=== PATIENT | male | born 1990 | race Caucasian/White ===

== ENCOUNTER 2017-05-30 04:16 | Emergency (ER) | payer OTHER ==
[~2017-05-30] VITALS: Ht 170.2 cm; Wt 89.0 kg
[2017-05-30 04:21] VITALS: BP 153/68
--- NOTE | 2017-05-30 04:25 | NUR ---
27 Y/O M W/C/O L GREAT TOE PAIN/LAC S/P STAGE DECK FELL ON TOP OF AFFECTED TOE. NO MED, BLEEDING UNDER CONTROL. ER MADE AWARE.
--- NOTE | 2017-05-30 04:40 | NUR ---
Pt report given to GLENNY COLE. Transfer of care at this time.
[2017-05-30] MEDS ORDERED: IBUPROFEN 800 MG TAB PO ONE (05:00)
[2017-05-30] MEDS ORDERED: LIDOCAINE 1% ***ER ONLY *** 50 ML ONE (05:13)
[2017-05-30] MEDS ORDERED: SILVER NITRATE APPLICATOR 1 EA SWAB TP ONE ×2 (05:37→05:38)
[2017-05-30] MEDS ORDERED: BACITRACIN OINT 500 UNITS/GM PKT TP ONE (06:17)
[2017-05-30 06:33] VITALS: BP 140/82
--- NOTE | 2017-05-30 06:34 | NUR ---
Patient discharged with v/s stable. Written and verbal after care instructions given and explained. Patient alert, oriented and verbalized understanding of instructions. Ambulatory with steady gait. All questions addressed prior to discharge. ID band removed. Patient advised to follow up with PMD. Rx of NAPROXEN 500MG, NORCO 5MG given. Patient educated on indication of medication including possible reaction and side effects. Opportunity to ask questions provided and answered.
== END 2017-05-30 06:34 | disposition home or self-care (01) ==
LOC: MED 04:16
DX: S91.211A Laceration without foreign body of right great toe with damage to nail, initial encounter (principal); W20.8XXA Other cause of strike by thrown, projected or falling object, initial encounter; Y93.89 Activity, other specified; Y92.89 Other specified places as the place of occurrence of the external cause; Y99.8 Other external cause status
CPT/HCPCS: 11760; 73630; 90471; 90715; 99284; J2001; Q0092

== ENCOUNTER 2018-04-12 21:02 | Emergency (ER) | payer OTHER ==
[~2018-04-12] VITALS: Ht 172.7 cm; Wt 69.4 kg
[2018-04-12 21:03] VITALS: BP 130/84
[2018-04-12 22:37] VITALS: BP 132/82
== END 2018-04-12 22:30 | disposition home or self-care (01) ==
LOC: MED 21:02
DX: S43.004A Unspecified dislocation of right shoulder joint, initial encounter (principal); X58.XXXA Exposure to other specified factors, initial encounter; Y93.89 Activity, other specified; Y92.89 Other specified places as the place of occurrence of the external cause; Y99.8 Other external cause status
CPT/HCPCS: 73030; 99284

== ENCOUNTER 2021-09-26 21:39 | Emergency (ER) | payer OTHER ==
[~2021-09-26] VITALS: Ht 172.7 cm; Wt 63.5 kg
[2021-09-26 21:47] VITALS: BP 135/83
--- NOTE | 2021-09-26 23:34 | NUR ---
PT FELL ON BACK ON A RAIL WHILE SKATING APPROX 3 HOURS AGO, PT STATES HE FEELS PAIN WHEN COUGHING AND DURING MOVEMENT ON HIS RIGHT RIBCAGE 02/17, " I HEAR POPING SOUNDS WHEN I MOVE". 106 P 99% 14R 131/91 BP PMH: NONE MEDS: NONE NKDA
[2021-09-26] MEDS ORDERED: KETOROLAC 60 MG/2 ML VIAL IM ONE (23:45)
[2021-09-27] MEDS ORDERED: ACET-8386 PO (00:16)
[2021-09-27] MEDS ORDERED: IBUP-2213 PO (00:16)
[2021-09-27 00:30] VITALS: BP 131/91
--- NOTE | 2021-09-27 00:36 | NUR ---
Patient discharged with v/s stable. Written and verbal after care instructions given and explained. Patient alert, oriented and verbalized understanding of instructions. Ambulatory with steady gait. All questions addressed prior to discharge. ID band removed. Patient advised to follow up with PMD. Rx of NORCO 5/325 & IBUPROFEN given. Patient educated on indication of medication including possible reaction and side effects. Opportunity to ask questions provided and answered.
== END 2021-09-27 00:36 | disposition home or self-care (01) ==
LOC: MED 21:39
DX: S22.31XA Fracture of one rib, right side, initial encounter for closed fracture (principal); M54.9 Dorsalgia, unspecified; F17.210 Nicotine dependence, cigarettes, uncomplicated; W18.39XA Other fall on same level, initial encounter; Y92.89 Other specified places as the place of occurrence of the external cause; Y93.89 Activity, other specified; Y99.8 Other external cause status
CPT/HCPCS: 71101; 96372; 99283; J1885